=== PATIENT | female | born 1950 | race Caucasian/White ===

== ENCOUNTER 2016-05-18 17:25 | Emergency (ER) | payer BC ==
[2016-05-18 17:41] VITALS: BP 146/87
[2016-05-18] MEDS ORDERED: Amoxicillin PO (*) 500 MG CAP PO ONE (18:15)
[2016-05-18] MEDS ORDERED: predniSONE TAB* 20 MG PO ONE (18:16)
--- NOTE | 2016-05-18 18:20 | UC ---
Respiratory Complaint HPI - HPI Summary HPI Summary: 66 yo female with asthma presents with cough and wheezing x 1 day no fever - History of Current Complaint Chief Complaint: UCRespiratory Stated Complaint: COUGH Time Seen by Provider: 05/18/16 18:05 Hx Obtained From: Patient Onset/Duration: Gradual Onset, Lasting Hours Timing: Constant Severity Initially: Mild Severity Currently: Mild Pain Intensity: 0 Pain Scale Used: 0-10 Numeric Character: Cough: Nonproductive Aggravating Factors: Exertion Alleviating Factors: Bronchodilator Associated Signs And Symptoms: Positive: Wheezing - Allergies/Home Medications Allergies/Adverse Reactions: Allergies Allergy/AdvReac Type Severity Reaction Status Date / Time Stamps Allergy Severe ITCHY, Verified 05/18/16 17:42 TIGHT THROAT Erythromycin Allergy Severe Abdominal Verified 05/18/16 17:41 Pain Latex Allergy Intermediate Rash And Verified 05/18/16 17:41 Itching MELON Allergy Severe ITCHY, Uncoded 05/18/16 17:42 TIGHT THROAT Home Medications: Home Medications Diuretic* 05/18/16 [History] Epinephrine [Epipen 2-Jack] 0.3 mg IM PRN 05/18/16 [History] Ibuprofen TAB* [Advil TAB*] 400 mg PO PRN 05/18/16 [History] Lovastatin [Altoprev] 05/18/16 [History] PMH/Surg Hx/FS Hx/Imm Hx Endocrine History Of: Reports: Thyroid Disease - HYPOTHYROID Denies: Diabetes Cardiovascular History Of: Reports: Cardiac Disorders - DYASTOLIC DYSFUNCTION Denies: Hypertension Respiratory History Of: Reports: Asthma, Bronchitis, Pneumonia Denies: COPD GI/ History Of: Denies: Ulcer Cancer History Of: Denies: Breast Cancer - Surgical History Surgical History: Yes Surgery Procedure, Year, and Place: rhinoplasty and turbinectomy - Family History Known Family History: Positive: Hypertension - Social History Alcohol Use: Rare Substance Use Type: None Smoking Status (MU): Never Smoked Tobacco Review of Systems Constitutional: Negative Skin: Negative Eyes: Negative ENT: Negative Respiratory: Cough Cardiovascular: Negative Gastrointestinal: Negative Genitourinary: Negative Motor: Negative Neurovascular: Negative Musculoskeletal: Negative Neurological: Negative Psychological: Negative All Other Systems Reviewed And Are Negative: Yes Physical Exam Triage Information Reviewed: Yes Appearance: Well-Appearing, No Pain Distress, Well-Nourished Vital Signs: Initial Vital Signs Temp 98.5 F 05/18/16 17:37 Pulse 98 02/04/17 17:37 Resp 18 05/18/16 17:37 BP 146/87 05/18/16 17:37 Pulse Ox 95 05/18/16 17:37 Vital Signs Reviewed: Yes Eyes: Positive: Conjunctiva Clear ENT: Positive: Hearing grossly normal. Negative: Nasal congestion, Nasal drainage, Tonsillar exudate, Trismus Neck: Positive: Supple, Nontender, No Lymphadenopathy Respiratory: Positive: Normal breath sounds, No respiratory distress, Wheezing - with forced expiration Cardiovascular: Positive: RRR, No Murmur. Negative: Tachycardia Musculoskeletal: Positive: ROM Intact, No Edema Neurological: Positive: Alert Psychological Exam: Normal Skin Exam: Normal UC Diagnostic Evaluation - Laboratory O2 Sat by Pulse Oximetry: 95 - low normal/not hypoxic Respiratory Course/Dx - Differential Dx/Diagnosis Provider Diagnoses: acute bronchitis with bronchospasm Discharge - Discharge Plan Condition: Stable Disposition: HOME Prescriptions: Amoxicillin (*) 875 mg PO BID #20 tab Prednisone [Deltasone] 40 mg PO DAILY #10 tab Patient Education Materials: Acute Bronchitis (ED) Referrals: Lory Almendarez NP [Primary Care Provider] - 4 Days (if not better)
== END 2016-05-18 18:15 | disposition home or self-care (01) ==
LOC: UCEAST 17:25
DX: J20.9 Acute bronchitis, unspecified (principal); Z88.1 Allergy status to other antibiotic agents
CPT/HCPCS: 99212; A9270-GY; G0463; J7512

== ENCOUNTER 2016-11-08 18:48 | Emergency (ER) | payer BC ==
[2016-11-08 19:01] VITALS: BP 122/70
[2016-11-08] MEDS ORDERED: Acetaminophen TAB* 325 MG PO ONE ×2 (19:21→20:05)
--- NOTE | 2016-11-08 19:52 | RAD ---
Indication: Lateral LEFT ankle pain and swelling. Remote history of fourth and fifth digit fractures. Comparison: January 19, 2015 LEFT foot radiographs. Technique: AP, mortise, and lateral views LEFT ankle. Report: Normal articular alignment. Negative for ankle fracture or osteochondral lesion. Negative for significant arthropathic change. Mild soft tissue swelling without focality. Healed fracture at the fifth metatarsal. IMPRESSION: Mild soft tissue swelling without additional acute finding.
--- NOTE | 2016-11-08 20:29 | UC ---
Lower Extremity/Ankle HPI - HPI Summary HPI Summary: SLIPPED IN GRASS WHILE SHOPPING THIS AFTERNOON, TWISTED ANKLE. PAIN TO (LATERAL ) LEFT ANKLE. HISTORY OF PREVIOUS ANKLE/FOOT INJURIES. UNABLE TO BEAR WEIGHT WITHOUT PAIN - History of Current Complaint Chief Complaint: UCLowerExtremity Stated Complaint: LEFT ANKLE INJURY Time Seen by Provider: 11/08/16 19:11 Hx Obtained From: Patient, Family/Solar Panel Installation Supervisor Onset/Duration: Sudden Onset, Lasting Hours, Still Present Severity Initially: Moderate Severity Currently: Moderate Aggravating Factor(s): Standing, Ambulation Able to Bear Weight: No - Risk Factors Gout Risk Factors: Negative DVT Risk Factors: Negative Septic Arthritis Risk Factor: Negative - Allergies/Home Medications Allergies/Adverse Reactions: Allergies Allergy/AdvReac Type Severity Reaction Status Date / Time [place] Allergy Severe ITCHY, Verified 11/08/16 19:02 TIGHT THROAT Erythromycin Allergy Severe Abdominal Verified 11/08/16 19:02 Pain Latex Allergy Intermediate Rash And Verified 11/08/16 19:02 Itching MELON Allergy Severe ITCHY, Uncoded 11/08/16 19:02 TIGHT THROAT Home Medications: Home Medications Atorvastatin* [Lipitor*] 10 mg PO DAILY 11/08/16 [History Confirmed 11/08/16] Hydrochlorothiazide TAB* [Hydrodiuril TAB*] 25 mg PO DAILY 11/08/16 [History Confirmed 11/08/16] Mometasone 220 MCG MDI * [Asmanex 220 MCG MDI *] 1 puff INH DAILY 11/08/16 [ History Confirmed 11/08/16] PMH/Surg Hx/FS Hx/Imm Hx Previously Healthy: Yes - Surgical History Surgical History: Yes Surgery Procedure, Year, and Place: rhinoplasty and turbinectomy - Family History Known Family History: Positive: Hypertension - Social History Occupation: Retired Lives: With Family Alcohol Use: Rare Substance Use Type: None Smoking Status (MU): Never Smoked Tobacco Review of Systems Constitutional: Negative Skin: Negative Eyes: Negative ENT: Negative Respiratory: Negative Cardiovascular: Negative Gastrointestinal: Negative Genitourinary: Negative Motor: Negative Neurovascular: Negative Musculoskeletal: Arthralgia, Myalgia Neurological: Negative Psychological: Negative All Other Systems Reviewed And Are Negative: Yes Physical Exam Triage Information Reviewed: Yes Appearance: Well-Appearing, Well-Nourished, Pain Distress - MODERATE, Obese Vital Signs: Initial Vital Signs Temp 98.7 F 11/08/16 18:54 Pulse 80 11/08/16 18:54 Resp 16 11/08/16 18:54 BP 122/70 11/08/16 18:54 Pulse Ox 99 11/08/16 18:54 Vital Signs Reviewed: Yes Eye Exam: Normal ENT Exam: Normal ENT: Positive: Normal ENT inspection, TMs normal Dental Exam: Normal Neck exam: Normal Neck: Positive: Supple, Nontender Respiratory Exam: Normal Respiratory: Positive: Chest non-tender, Lungs clear, Normal breath sounds, No respiratory distress Cardiovascular Exam: Normal Abdominal Exam: Normal Abdomen Description: Positive: Nontender, No Organomegaly Musculoskeletal Exam: Normal Musculoskeletal: Positive: Strength Intact, ROM Intact, Edema @ - LEFT LATERAL LEG Neurological Exam: Normal Psychological Exam: Normal Skin Exam: Normal Lower Extremity Course/Dx - Differential Dx/Diagnosis Differential Diagnosis/HQI/PQRI: Fracture (Closed), Sprain, Strain Provider Diagnoses: LEFT ANKLE SPRAIN Discharge - Discharge Plan Condition: Stable Disposition: HOME Patient Education Materials: Ankle Sprain (ED) Referrals: [facility] [Outside] - If Needed Kushal Crowell MD [Medical Doctor] - If Needed Lory Almendarez NP [Primary Care Provider] -
== END 2016-11-08 20:30 | disposition home or self-care (01) ==
LOC: UCCORT 18:48
DX: S93.402A Sprain of unspecified ligament of left ankle, initial encounter (principal); W01.0XXA Fall on same level from slipping, tripping and stumbling without subsequent striking against object, initial encounter; Y92.9 Unspecified place or not applicable; Z88.1 Allergy status to other antibiotic agents
CPT/HCPCS: 99213; A9270-GY; G0463

== ENCOUNTER 2017-03-05 15:35 | Emergency (ER) | payer MEDICARE, OTHER ==
[2017-03-05 17:09] LABS: Hematocrit 45 % (35-47); Hemoglobin 15.4 g/dl (12.0-16.0); Mean Corpuscular HGB Conc 34 g/dl (31-36); Mean Corpuscular Hemoglobin 33 pg (27-31); Mean Corpuscular Volume 96 fL (80-97); Mean Platelet Volume 9 um3 (7.4-10.4); Red Blood Count 4.67 10^6/ul (4.0-5.4); Red Cell Distribution Width 13 % (10.5-15); White Blood Count 6.3 10^3/ul (3.5-10.8)
[2017-03-05 17:28] LABS: ALT 26 U/L (7-52); AST 20 U/L (13-39); Albumin 4.3 g/dL (3.2-5.2); Alkaline Phosphatase 81 U/L (34-104); Anion Gap 6 mmol/L (2-11); BUN/Creatinine Ratio 17.9 (8-20); Blood Urea Nitrogen 15 mg/dL (6-24); CO2 Carbon Dioxide 30 mmol/L (22-32); Calcium 9.3 mg/dL (8.6-10.3); Chloride 102 mmol/L (101-111); Cholesterol 185 mg/dL; EGFR African American 87.5 (>60); Globulin 2.8 g/dL (2-4); Glucose 96 mg/dL (70-100); HDL Cholesterol 53.9 mg/dL; LDL Cholesterol 103 mg/dL; Potassium 3.6 mmol/L (3.5-5.0); Sodium 138 mmol/L (133-145); Total Protein 7.1 g/dL (6.4-8.9); Triglycerides 139 mg/dL
[2017-03-05 17:29] LABS: Troponin I 0.01 ng/mL (<0.04)
--- NOTE | 2017-03-05 17:31 | RAD ---
INDICATION: Unsteady gait and blurry vision COMPARISON: None. TECHNIQUE: Contiguous axial sections of the brain were obtained from the skull base to the vertex without contrast. FINDINGS: The ventricles, cisterns and sulci are within normal limits. The bourgeois-white matter differentiation is adequately maintained and there is no sulcal effacement. No significant focal abnormality or mass effect is present. There is no evidence for intracranial hemorrhage. There is a small degree of hyperostosis frontalis interna. No significant focal osseous abnormality is present. The visualized portion of the paranasal sinuses and mastoid air cells appear clear. IMPRESSION: No acute intracranial abnormality.
--- NOTE | 2017-03-05 17:33 | RAD ---
INDICATION: Unsteady gait COMPARISON: Chest x-ray dated October 14, 2005 TECHNIQUE: PA and lateral views of the chest were obtained. FINDINGS: The heart and mediastinum are normal in size and contour. The lungs are grossly clear. There is no evidence of large pleural effusion. Visualized bones are normal for the patient's age. There is no radiographic evidence of free air beneath the diaphragm IMPRESSION: No radiographic evidence of acute cardiopulmonary disease.
[2017-03-05 17:51] LABS: Alcohol < 10 mg/dL (<10)
[2017-03-05 17:56] LABS: Urine Bilirubin Negative (Negative); Urine Glucose Negative (Negative); Urine Nitrite Negative (Negative)
[2017-03-05 18:06] LABS: Benzodiazepine Urine Screen None Detected (None Detect)
--- NOTE | 2017-03-05 19:34 | RAD ---
HISTORY: Blurred vision and lightheadedness x4 days COMPARISONS: Normal CT of the brain from the same day TECHNIQUE: The following sequences were obtained of the head: Sagittal T1-weighted images, axial T2-weighted images, axial FLAIR images, axial susceptibility weighted images, axial T1-weighted images. Additionally, axial diffusion-weighted images were obtained with calculated apparent diffusion coefficients.. FINDINGS: HEMORRHAGE/INFARCT: There is no hemorrhage or acute infarct. MASSES/SHIFT: There is no mass or shift. EXTRA-AXIAL SPACES/MENINGES: There are no extra-axial fluid collections. SULCI AND VENTRICLES: The sulci and ventricles are normal in size and position for the patient's stated age. CEREBRUM: There are no focal parenchymal abnormalities. BRAINSTEM: There are no focal parenchymal abnormalities. CEREBELLUM: There are no focal parenchymal abnormalities. The cerebellar tonsils are normal in size and position. SELLA: The sella is normal. PINEAL: The pineal region is clear. CP ANGLE/TEMPORAL BONES: The labyrinthine structures are grossly normal. VESSELS: Normal flow-voids are noted within the visualized vertebral vasculature. DIFFUSION ABNORMALITIES: There are no diffusion abnormalities. PARANASAL SINUSES/MASTOIDS: The paranasal sinuses are clear. There is a small amount of fluid in the dependent left mastoid air cells. ORBITS: Immediately posterior and adjacent to the globes there is T2 bright signal surrounding the bilateral optic nerves (axial image 12 of 28 on the T2-weighted images). BONES AND SOFT TISSUE: No bone or soft tissue abnormalities are noted. 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 IF CLINICALLY WARRANTED, FURTHER CHARACTERIZATION CAN BE MADE WITH THE CONTRAST-ENHANCED MRI.
--- NOTE | 2017-03-05 23:34 | ED ---
Tristan Morin Nilda, scribed for Tiffanie Gordon MD on 03/05/17 at 1906 . Progress - Progress Note Progress Note: This pt was signed out by Dr. Aly, pending MRI Brain. 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 IF CLINICALLY WARRANTED, FURTHER CHARACTERIZATION CAN BE MADE WITH THE CONTRAST-ENHANCED MRI. ED physician has reviewed this report and agrees. [2057] reviewed MRI results with Dr. Cm (Neuro) who agrees to consult with radiologist for further information. [2108] Dr. Cm (Neuro) spoke to radiologist who reports that result is probably normal and recommends that patient be D/C with follow ups with Neurology and Opthalmologist. [2115] Dr. Cm (Neuro) agrees to see patient in the ED. [2116] re-eval: Reviewed labs and plan for neurologist to see pt in ED. [23:13] Dr. Cm (Neuro) visited pt in ED and recommends follow up with Opthamology (Dr. Castro). She also gave pt her card for follow up with Neuro. She recommends D/C. Pt is stable and will be D/C with follow up with Opthamology and Neuro next week. Pt is agreeable with this plan. Course/Dx - Diagnoses Provider Diagnoses: Ataxia The documentation as recorded by the Tristan argueta Nilda accurately reflects the service I personally performed and the decisions made by , Tiffanie Gordon MD.
[2017-03-05 23:55] VITALS: BP 148/88
--- NOTE | 2017-03-06 01:05 | CONS ---
CC: Lory Almendarez NP * CONSULTATION REPORT: DATE OF CONSULT: 03/05/17 - EMERGENCY DEPT REASON FOR CONSULT: Blurry vision and difficulty with balance. 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 She tells me that her vision issue started about a year ago when she was noticing she had a hard time reading a sign in the distance with covering one eye versus the other. She realized her left eye was worse. She was seen in Dr. Bobby's office, was given glasses, but she felt the glasses did not help her see well and gave her a headache. She felt like some-thing was going on with the left eye and she was told there is a mild tear in her retina. She saw a specialist in [place] and she tells me that he confirmed the mild tear in the retina and advised glasses without progressive lenses. She got bifocals and she was doing better for about 9 months. About a month ago, she was noticing that she would trip on things such as a box that was in the floor in her house, she would know it was there, but she would trip on it. In retrospect , for months, she has had a harder time with uneven ground and dips in the yard feeling off balance and for a year, it has been harder for her in her shower. When she closes her eyes, she will be more off balance. Her significant other noticed that she has been squinting more in the last 2 to 3 years to make sure she sees things clearly. In the last 2-1/2 weeks, she did not feel well and felt like she was getting a virus. Overall, she did not feel right. With this, she felt like there was more stumbling and tripping. She felt as if her vision was more cloudy. Her glasses were dirty. There was not one particular side that had vision loss and there was no pain with eye movement. In the last 2 weeks, she felt more drunk when walking and when pushing a cart, she will feel more stable than when she is not pushing a cart. She has noticed for quite a long time, abnormal sensation in her feet. She was diagnosed with plantar fasciitis. She does also have a sensation as if a sock is bunched up on to her foot, but it is not. This occurs in the setting of a history of dyslipidemia, hypothyroidism, asthma , allergies for which she gets injections, diastolic dysfunction. It has been listed she had hypertension, but she denies this and states she is only on hydrochlorothiazide for edema. She has a diagnosis of sleep apnea and uses a mandibular device. She indicates previous history of plantar fasciitis and needing to wear a foot brace. Previous surgeries include rhinoplasty and turbinectomy. MEDICATIONS: Include: 1. Hydrochlorothiazide 25 mg p.o. daily. 2. Atorvastatin 10 mg p.o. daily. 3. Levothyroxine which she believes is 150 mcg p.o. daily. 4. Singulair 10 mg p.o. q.h.s. 5. Asmanex metered dose inhaler daily. 6. Albuterol p.r.n. ALLERGIES: Include ERYTHROMYCIN and LATEX. She also has many sensitivities including CITRUS, GRASS, TREE, MOLDS, so she follows with an avionics electrical engineer. FAMILY HISTORY: Includes mother who at 78. She had diabetes, allergy, asthma, coronary artery disease with bypass. Her father at 79. He had cancer of unknown type, coronary artery disease, and hypertension. She has a brother with depression and hypertension and she has a son who is alive and well. SOCIAL HISTORY: She does not smoke. She occasionally drinks alcohol. 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 REVIEW OF SYSTEMS: Vision changes are as mentioned above. There has been no change in hearing. She has had some increase in mucus. There has been no other problems with swallowing or speaking. She finds she is tired when she is not feeling well, but otherwise there had been no change in cognition or mood. No chest pain, chest pressure, shortness of breath, palpitations. No change in bowel or bladder habits. No rashes. No joint pain. She denies any weight loss , drenching night sweats or high fevers for an unknown reason. She denies any psychiatric history. She has been sleeping well according to her significant other. PHYSICAL EXAM: On examination, Ms. Olivas's vitals include a blood pressure of 148/72, pulse was 87, her temperature was 98.2, her saturation was 95%, and respiratory rate was ridged between 15 and 23. She had a regular cardiac rhythm. Her lungs were clear to auscultation. There was no carotid bruit. She had no peripheral edema. No rashes were noted. Peripheral pulses were intact. She was awake, alert, articulate. Had normal language and function. Adequate fund of knowledge. Her pupils were equal and responsive to light. Her fundi were flat. She had full extraocular movements with no nystagmus and full parks to confrontation. She had a left esotropia to cover-uncover. Her facial expression, sensation, and hearing were equal. Palate was upgoing. Tongue was midline. Sternocleidomastoid and trapezius were 5/5 in strength. There was normal bulk and tone. No pronator drift. Full strength in the upper and lower extremities with normal [id number] and [id number] movements. Vibration sensation was absent at the large toes and was decreased at the ankles by 20 to 25 seconds. There was decreased sharp sensation to the ankles bilaterally. Light touch and cold were symmetric. Cold was hard to feel in the feet, one side worse than the other; however, her feet were cold. Her reflexes were 2+ and symmetric except for the ankles that were trace. Toes were flexor response. Her Romberg was wobbly. She could walk on her heels and toes. She performed tandem gait with some difficulty. She could walk independently with no increase in stance. DIAGNOSTIC STUDIES/LAB DATA: Data includes MRI of the brain which was reviewed directly and did not show evidence of stroke. Radiologist raised question of some fluid near the optic nerves which may be seen in the setting of optic neuritis, if clinically appropriate. She had no symptoms of optic neuritis. I spoke to the radiologist directly, and he felt that the findings could be within normal limits but given the symptoms of blurred vision, he listed this as a possible differential. His report also indicates that the sinuses are clear. She was concerned because of some congestion that she was feeling. There was some fluid noted dependent left mastoid air cells. The CT of the brain was also performed and no acute intracranial abnormality was noted and the sinuses that were visualized appeared to be clear. Her chest x-ray was read as showing no evidence of acute cardiopulmonary disease. Her laboratory tests include normal white count, hemoglobin, hematocrit and platelets. There was slight increase in monocytes at 9.2%. Her INR was normal. Her complete metabolic panel was normal. Her urinalysis was negative. Her urine tox screen was negative. IMPRESSION: Marilia Olivas is a 67-year-old woman with history of congenital eye movement abnormalities who has had 1 plus year of progressive visual symptoms with difficulty with visual acuity, most recently some foggy vision and some diplopia only at distance which can be pulled back together with effort. This occurs without any other cranial nerve symptoms or findings on examination to suggest a neuromuscular junction abnormality or to suggest a cranial neuropathy. Given the visual symptom decline, one must question visual acuity as well as the diplopia only on occasion in distant gaze for which she can bring it together when focussing hard, suggesting a component of eye fatigue. I have suggested seeing an conservation specialist for evaluation. She does have a baseline congenital eye movement abnormality, and I question whether that in the setting of aging may result in some of this decompensation. On examination and history, she also has symptoms to suggest a peripheral neuropathy with more difficulty with uneven ground, difficulty in the shower, distal nerve changes with loss of vibration, sensation, decreased reflexes, and decreased distal sharp sensation with subjective abnormal sensation in the feet. These findings suggest a peripheral neuropathy that can add to imbalance. Her eyes help to compensate for her peripheral nerves and therefore, if there is some decline, this will make all of her symptoms feel worse. Education was provided regarding differential diagnosis, findings on exam, findings on MRI, lack of findings to suggest a need for admission. I would suggest that she have an ophthalmology consult with Dr. Gregorio. I have also suggested she follow up with me for EMG/ nerve conduction studies and further workup if needed. Reassurance was given that there was no evidence of stroke. If there is any new progressive symptoms, she should feel free to return for further evaluation in the interim. TIME SPENT: Over an hour and a half was spent in direct [id number] patient care, with 50% of the time was spent in education and counseling. All questions were answered. [id number]/[facility] #: [id number] DANIEL
--- NOTE | 2017-03-06 07:50 | ED ---
Reinier Morin Angela, scribed for Gilberto Aly MD on 03/05/17 at 1620 . Neurological HPI - HPI Summary HPI Summary: This pt is a 67 y/o female [facility] c/o difficulty ambulating secondary to stumbling for 4-5 days. Pt reports that she has "no sense of her body" and trips over things while ambulating. She additionally reports "I fell like I'm drunk" and "in a daze." She notes yesterday she had diplopia. Pt is able to ambulate but notes her perception is off, which causes her to trip and stumble. There are no alleviating or aggravating factors. Pt was referred to the ED by her PCP for a CT scan. She wears glasses and last time she adjusted her glasses was [address] Bobby. - History of Current Complaint Chief Complaint: EDNeurologicalDeficit Stated Complaint: BLURRY VISION Time Seen by Provider: 03/05/17 16:03 Hx Obtained From: Patient Onset/Duration: Started days ago, Still Present Timing: Constant Pain Intensity: 0 Pain Scale Used: 0-10 Numeric Character: Other: - difficulty ambulating, diplopia, stumbling and tripping over things Aggravating: Nothing Alleviating: Nothing Associated Signs and Symptoms: Positive: Unsteady Gait - stumbling and tripping over things, Visual Changes - diplopia - Allergy/Home Medications Allergies/Adverse Reactions: Allergies Allergy/AdvReac Type Severity Reaction Status Date / Time [place] Allergy Severe ITCHY, Verified 11/08/16 19:02 TIGHT THROAT Erythromycin Allergy Severe Abdominal Verified 11/08/16 19:02 Pain Latex Allergy Intermediate Rash And Verified 11/08/16 19:02 Itching MELON Allergy Severe ITCHY, Uncoded 11/08/16 19:02 TIGHT THROAT PMH/Surg Hx/FS Hx/Imm Hx Endocrine/Hematology History: Reports: Hx Thyroid Disease - HYPOTHYROID Denies: Hx Diabetes Cardiovascular History: Denies: Hx Hypertension Respiratory History: Reports: Hx Asthma, Hx Pneumonia Denies: Hx Chronic Obstructive Pulmonary Disease (COPD) GI History: Denies: Hx Ulcer Musculoskeletal History: Denies: Hx Osteoporosis - Cancer History Hx Chemotherapy: No Hx Radiation Therapy: No - Surgical History Surgery Procedure, Year, and Place: rhinoplasty and turbinectomy Infectious Disease History: No Infectious Disease History: Denies: Hx Hepatitis, Hx Human Immunodeficiency Virus (HIV), History Other Infectious Disease, Traveled Outside the [place] in Last 30 Days - Family History Known Family History: Positive: Hypertension - Social History Alcohol Use: Rare Substance Use Type: Reports: None Smoking Status (MU): Never Smoked Tobacco Review of Systems Negative: Fever, Chills Positive: Diplopia ENT: Negative Cardiovascular: Negative Respiratory: Negative Gastrointestinal: Negative Genitourinary: Negative Neurological: Other - difficulty ambulating, tripping and stumbling over things. All Other Systems Reviewed And Are Negative: Yes Physical Exam - Summary Physical Exam Summary: VITAL SIGNS: Reviewed. GENERAL: Patient is a well-developed and nourished (MALE OR FEMALE) who is lying comfortable in the stretcher. Patient is not in any acute respiratory distress. HEAD AND FACE: No signs of trauma. No ecchymosis, hematomas or skull depressions. No sinus tenderness. EYES: PERRLA, EOMI x 2, No injected conjunctiva, no nystagmus. No photophobia. EARS: Hearing grossly intact. Ear canals and tympanic membranes are within normal limits. MOUTH: Oropharynx within normal limits. NECK: Supple, trachea is midline, no adenopathy, no JVD, no carotid bruit, no c- spine tenderness, neck with full ROM. No meningeal signs, no Kernig's or brudzinskis signs. CHEST: Symmetric, no tenderness at palpation LUNGS: Clear to auscultation bilaterally. No wheezing or crackles. CVS: Regular rate and rhythm, S1 and S2 present, no murmurs or gallops appreciated. ABDOMEN: Soft, non-tender. No signs of distention. No rebound no guarding, and no masses palpated. Bowel sounds are normal. EXTREMITIES: FROM in all major joints, no edema, no cyanosis or clubbing. NEURO: Alert and oriented x 3. No acute neurological deficits. Speech is normal and follows commands. SKIN: Dry and warm GCS: 15 Triage Information Reviewed: Yes Vital Signs On Initial Exam: Initial Vitals Temp Pulse Resp BP Pulse Ox 98.2 F 79 15 145/81 97 03/05/17 15:44 03/05/17 15:44 03/05/17 15:44 03/05/17 15:44 03/05/17 15:44 Vital Signs Reviewed: Yes Diagnostics - Vital Signs Vital Signs Temp Pulse Resp BP Pulse Ox 03/05/17 15:44 98.2 F 79 15 145/81 97 - Laboratory Result Diagrams: 03/05/17 17:00 03/05/17 17:00 Lab Statement: Any lab studies that have been ordered have been reviewed, and results considered in the medical decision making process. - Radiology Chest XR Xray Interpretation: No Acute Changes - IMPRESSION: No radiographic evidence of acute cardiopulmonary disease. ED physician has reviewed this radiology report and agrees. Radiology Interpretation Completed By: Radiologist - CT Brain CT CT Interpretation: No Acute Changes - IMPRESSION: NO acute intracranial abnormality. ED physician has reviewed this radiology report and agrees. CT Interpretation Completed By: Radiologist - EKG 1555 Cardiac Rate: NL EKG Rhythm: Sinus Rhythm - at 80 bpm EKG Interpretation: No ST elevation - Additional Comments Diagnostic Additional Comments: Brain MRI, per radiologist: Official radiologist report pending, please see [facility]. Re-Evaluation - Re-Evaluation First Eval Re-Evaluation Time: 17:51 Comment: Pt is doing well, ambulating without an aide. There is no ataxia or staggering. Course/Dx - Course Assessment/Plan: This pt is a 67 y/o female [facility]/o difficulty ambulating secondary to stumbling for 4-5 days. Pt reports that she has "no sense of her body" and trips over things while ambulating. She additionally reports "I fell like I'm drunk" and "in a daze." She notes yesterday she had diplopia. Pt is able to ambulate but notes her perception is off, which causes her to trip and stumble. There are no alleviating or aggravating factors. Pt was referred to the ED by her PCP for a CT scan. She wears glasses and last time she adjusted her glasses was [address] Bobby. Test results without any significant abnormalities. Head CT shows no acute intracranial abnormality. I ambulated the pt and she did not have any ataxia, however she reports some cloudiness. Therefore, I decided to discuss the case with Dr. Cm and she recommends to do an MRI without contrast. If the MRI is negative she will be discharged and follow up with neurology and ophthalmology. Otherwise, the pt will be admitted to [facility] for further work up and management. Pt will be signed out to Dr. Gordon to follow up on MRI imaging. - Diagnoses Provider Diagnoses: Ataxia - Physician Notifications Discussed Care Of Patient With: Saniya Cm Time Discussed With Above Provider: 17:57 Instructed by Provider To: Other - I discussed pt care with Dr. Cm, she recommends an MRI. Discharge - Discharge Plan Condition: Stable Disposition: OTHER Discharge Disposition Comment: signed out to Dr. Gordon, pending disposition, awaiting MRI. Referrals: Lory Almendarez NP [Primary Care Provider] - The documentation as recorded by the Reinier argueta Angela accurately reflects the service I personally performed and the decisions made by me, Gilberto Aly MD.
== END 2017-03-05 23:53 ==
LOC: ED 15:35
DX: R27.0 Ataxia, unspecified (principal); H53.2 Diplopia
CPT/HCPCS: 36415; 70450; 70551; 71020; 80053; 80061; 80307; 80320; 81003; 84484; 85025; 85610; 93005; 99284; G0480